=== PATIENT | female | born 1985 | race Hispanic/Latino ===

== ENCOUNTER 2017-09-22 14:06 | Observation (INO) | payer BC, MEDICAID ==
[~2017-09-22] VITALS: Ht 152.4 cm; Wt 58.1 kg
[2017-09-22 16:42] VITALS: BP 114/85
== END 2017-09-22 16:53 | disposition home or self-care (01) ==
LOC: LDH 15:30
PROVIDERS: ADMIT Obstetrics & Gynecology; ATTEND Obstetrics & Gynecology
DX: O36.8130 Decreased fetal movements, third trimester, not applicable or unspecified (principal); Z3A.37 37 weeks gestation of pregnancy
CPT/HCPCS: 76819; G0378 ×2

== ENCOUNTER 2017-10-01 08:06 | Observation (INO) | payer BC, MEDICAID ==
[~2017-10-01] VITALS: Ht 152.4 cm; Wt 58.1 kg
== END 2017-10-01 09:43 | disposition home or self-care (01) ==
LOC: EDH 08:06 → LDH 08:14
PROVIDERS: ADMIT Obstetrics & Gynecology; ATTEND Obstetrics & Gynecology
DX: O62.9 Abnormality of forces of labor, unspecified (principal); Z3A.39 39 weeks gestation of pregnancy
CPT/HCPCS: 99285; G0378

== ENCOUNTER 2017-10-02 00:07 | Inpatient (IN) | payer BC, MEDICAID ==
[~2017-10-02] VITALS: Ht 152.4 cm; Wt 59.0 kg
[2017-10-02] MEDS ORDERED: LACTATED RINGERS 1000ML 1,000 ML IV PRN (00:52)
[2017-10-02 00:59] LABS: HEMATOCRIT 32.4 % (36-48); MEAN CORPUSCULAR HEMOGLOBIN 27.9 pg (27.0-33.0); MEAN CORPUSCULAR HGB CONC 32.9 g/dL (32.0-36.0); MEAN CORPUSCULAR VOLUME 84.8 fL (79-99); PLATELET COUNT (AUTO) 181 K/uL (130-400); RED BLOOD CELL COUNT(AUTO) 3.82 MIL/uL (4.00-5.50); RED CELL DISTRIBUTION WIDTH 15.4 % (11.0-15.5)
[2017-10-02] MEDS ORDERED: NALOXONE HCL 0.4 MG/1 ML ML IV PRN (01:00)
[2017-10-02] MEDS ORDERED: OXYTOCIN-LR 20 UNITS/1000 ML 1,000 ML IV SCH (01:00)
[2017-10-02] MEDS ORDERED: BUTORPHANOL TARTRATE 2 MG/ML IVP PRN (01:00)
[2017-10-02] MEDS ORDERED: EPHEDRINE SULFATE 50 MG/ML AMPULE IVP PRN (01:00)
[2017-10-02] MEDS ORDERED: LACTATED RINGERS 500 ML 500 ML IV PRN (01:00)
[2017-10-02 01:09] LABS: BILIRUBIN,URINE Negative (NEGATIVE); COLOR,URINE Yellow (YELLOW); GLUCOSE, URINE (UA) Negative (NEGATIVE); KETONES,URINE Negative (NEGATIVE); LEUKOCYTE ESTERASE ,URINE Trace (NEGATIVE); NITRATE,URINE Negative (NEGATIVE); OCCULT BLOOD,URINE Negative (NEGATIVE); PROTEIN,URINE Negative (NEGATIVE)
[2017-10-02] MEDS ORDERED: LACTATED RINGERS 1000ML 1,000 ML IV ONE ×3 (01:25→07:22)
[2017-10-02 01:44] LABS: APPEARANCE,URINE CLEAR (CLEAR); BACTERIA,URINE Few /HPF (None Seen); RBC,URINE None Seen /HPF (0-1); WBC,URINE 0-1 /HPF (0-1)
[2017-10-02 01:45] LABS: MUCUS,URINE Few LPF (None Seen)
[2017-10-02] MEDS ORDERED: OXYTOCIN 10 USP UNITS/ML ONE ×2 (03:05→07:22)
[2017-10-02] MEDS ORDERED: LIDOCAINE HCL 1% 20 ML VIAL ONE (03:06)
[2017-10-02] MEDS ORDERED: HYDROCODONE/ACETAMINOPHEN 5/325 MG TAB PO PRN (08:00)
[2017-10-02] MEDS ORDERED: LANOLIN 30GM OINTMENT TP PRN (08:00)
[2017-10-02] MEDS ORDERED: DIPH,PERTUSS(ACELL),TET VAC/PF 0.5 ML VIAL IM PRN (08:00)
[2017-10-02] MEDS ORDERED: MEASLES/MUMPS/RUBELLA VACCINE, LIVE 0.5 ML/VIAL SQ PRN (08:00)
[2017-10-02] MEDS ORDERED: BENZOCAINE/LANOLIN/ALOE VERA 60 ML AEROSOL TP PRN (08:00)
[2017-10-02] MEDS ORDERED: WITCH HAZEL 1 PAD TP PRN (08:00)
[2017-10-02] MEDS ORDERED: ACETAMINOPHEN-CODEINE 300/30MG TAB PO PRN (08:00)
[2017-10-02] MEDS ORDERED: ACETAMINOPHEN 325 MG TAB PO PRN (08:00)
[2017-10-02] MEDS: IBUPROFEN 600 MG TABLET PO PRN ×2 (08:54→21:32)
[2017-10-02 09:25] VITALS: BP 127/79
[2017-10-02 11:12] VITALS: BP 121/77
[2017-10-02] MEDS: DOCUSATE SODIUM 100 MG CAP PO SCH ×2 (12:44→21:32)
[2017-10-02 15:33] VITALS: BP 128/84
[2017-10-02 19:27] VITALS: BP 119/80
[2017-10-02 23:10] VITALS: BP 104/64
[2017-10-02 23:13] VITALS: BP 112/62
[2017-10-03 03:07] VITALS: BP 106/65
[2017-10-03] MEDS: IBUPROFEN 600 MG TABLET PO PRN ×3 (03:18→14:34)
[2017-10-03 07:16] VITALS: BP 128/68
[2017-10-03] MEDS: DOCUSATE SODIUM 100 MG CAP PO SCH (09:03)
[2017-10-03 11:24] VITALS: BP 93/61
[2017-10-03 15:30] VITALS: BP 129/77
[2017-10-04 02:12] LABS: HEPATITIS Bs ANTIGEN SCREEN P Negative (Negative)
== END 2017-10-03 17:25 | disposition home or self-care (01) | DRG 774 ==
LOC: EDH 00:07 → OBSVTOIN 00:21 → LDH 00:21 → WSH 09:25
PROVIDERS: ADMIT Obstetrics & Gynecology; ATTEND Obstetrics & Gynecology
PROC: 10E0XZZ Delivery of Products of Conception, External Approach (ICD-10-PCS; principal; 2017-10-02)
PROC: 10907ZC Drainage of Amniotic Fluid, Therapeutic from Products of Conception, Via Natural or Artificial Opening (ICD-10-PCS; 2017-10-02)
PROC: 0HQ9XZZ Repair Perineum Skin, External Approach (ICD-10-PCS; 2017-10-02)
PROC: 00HU33Z Insertion of Infusion Device into Spinal Canal, Percutaneous Approach (ICD-10-PCS; 2017-10-02)
PROC: 3E0R3BZ Introduction of Anesthetic Agent into Spinal Canal, Percutaneous Approach (ICD-10-PCS; 2017-10-02)
DX: O98.32 Other infections with a predominantly sexual mode of transmission complicating childbirth (principal); A63.0 Anogenital (venereal) warts; O70.0 First degree perineal laceration during delivery; Z28.21 Immunization not carried out because of patient refusal; Z37.0 Single live birth; Z3A.38 38 weeks gestation of pregnancy; Z82.49 Family history of ischemic heart disease and other diseases of the circulatory system
CPT/HCPCS: 36415; 81001; 85027; 86592; 86850; 86900; 86901; 87340; J0595; J2590; J7120